=== PATIENT | male | born 1985 | race Caucasian/White ===

== ENCOUNTER 2020-09-11 03:33 | Emergency (ER) | payer BC ==
[~2020-09-11 03:33] MED LIST: ANTIVERT 25MG T25 MG PO; FLONASE 0.05% N16 GM; KEFLEX CAP 500500 MG PO; LEVAQUIN500 MG PO; SUDAFED 60 MG T60 MG PO; XYZAL5 MG PO
[2020-09-11 05:04] LABS: HEMOGLOBIN 13.4 gm/dl (14.0-17.5); RED BLOOD COUNT 4.67 M/UL (4.20-5.50); WHITE BLOOD COUNT 8.2 K/UL (4.5-11.0)
[2020-09-11 05:18] LABS: BUN/CREATININE RATIO 19 (0-10)
[2020-09-11] MEDS ORDERED: ZOFRAN 4 MG TAB4 MG PO (06:54)
== END 2020-09-11 07:12 | disposition home or self-care (01) ==
LOC: ER1 03:33
PROVIDERS: Emergency Medicine
DX: B34.9 Viral infection, unspecified (principal); Z20.822 Contact with and (suspected) exposure to COVID-19; Z88.6 Allergy status to analgesic agent
CPT/HCPCS: 71045; 80053; 81001; 85025; 87081; 87880; 99283; U0002